=== PATIENT | female | born 1985 | race Caucasian/White ===

== ENCOUNTER 2018-05-10 08:58 | Emergency (ER) | payer MEDICAID ==
[2018-05-10 09:20] VITALS: BP 110/69; PULSE 86; RESP 18; TEMP 98; O2SAT 98
--- NOTE | 2018-05-10 09:28 | C.PDOC ---
History Of Present Illness 33 year old female presents to ED for evaluation of cough associated with clear sputum for the past 2 weeks. Otherwise, denies shortness of breath, chest pain, fever, chills, or any other associated symptoms at this time. Time Seen by Provider: 05/10/18 09:12 Chief Complaint (Nursing): Flu-like Symptoms History Per: Patient History/Exam Limitations: no limitations Onset/Duration Of Symptoms: Days Current Symptoms Are (Timing): Still Present Location Of Pain: None Sick Contacts (Context): Family Member(s) Associated Symptoms: Cough, Sputum. denies: Fever, Chills, Sore Throat, Neck Pain, Myalgias, Nasal Congestion Ear Symptoms: Bilateral: None Recent travel outside of the [place]: No Additional History Per: Patient Past Medical History Reviewed: Historical Data, Nursing Documentation, Vital Signs Vital Signs: Last Vital Signs Temp 98 F 05/10/18 09:12 Pulse 86 05/10/18 09:12 Resp 18 05/10/18 09:12 BP 110/69 05/10/18 09:12 Pulse Ox 98 05/10/18 09:12 - Medical History PMH: Migraine, Rheumatoid Arthritis Family History: States: Unknown Family Hx - Social History Hx Tobacco Use: No Hx Alcohol Use: No Hx Substance Use: No - Immunization History Hx Tetanus Toxoid Vaccination: No Hx Influenza Vaccination: No Hx Pneumococcal Vaccination: No Review Of Systems Except As Marked, All Systems Reviewed And Found Negative. Constitutional: Negative for: Fever, Chills ENT: Negative for: Ear Pain, Nose Discharge, Nose Congestion, Throat Pain Cardiovascular: Negative for: Chest Pain, Palpitations Respiratory: Positive for: Cough, Sputum. Negative for: Shortness of Breath, Hemoptysis, SOB with Excertion Gastrointestinal: Negative for: Nausea, Vomiting, Abdominal Pain, Diarrhea Neurological: Negative for: Headache, Dizziness Physical Exam - Physical Exam Appears: Non-toxic, No Acute Distress Skin: Normal Color, Warm, Dry Head: Atraumatic, Normacephalic Eye(s): bilateral: Normal Inspection Ear(s): Bilateral: Normal Nose: Normal Oral Mucosa: Moist Tongue: Normal Appearing Lips: Normal Appearing Throat: Normal, No Erythema, No Exudate, No Drooling Neck: Normal ROM, Supple Chest: Symmetrical Cardiovascular: Rhythm Regular, No Murmur Respiratory: No Accessory Muscle Use, No Rales, Rhonchi, No Wheezing Gastrointestinal/Abdominal: Soft, No Tenderness Extremity: Normal ROM, No Pedal Edema Neurological/Psych: Oriented x3, Normal Speech ED Course And Treatment O2 Sat by Pulse Oximetry: 98 (RA) Pulse Ox Interpretation: Normal Medical Decision Making Medical Decision Making: Patient is being discharged home with Rx and instructions to follow up with PMD in 2-5 days for further evaluation. Disposition Counseled Patient/Family Regarding: Need For Followup, Rx Given - Disposition Referrals: José Miguel Coles, ADALBERTO, [employer] INSTRUCTOR [Advanced Practice Nurse] - Disposition: HOME/ ROUTINE Disposition Time: 09:26 Condition: STABLE Additional Instructions: Follow up with your primary medical doctor or clinic in 2-5 days for further evaluation. Take medications as prescribed. Return to the emergency department at any time if symptoms persist or worsen. Prescriptions: Azithromycin [Zithromax] 250 mg PO DAILY #6 tab Benzonatate [Tessalon Perles] 100 mg PO TID #30 sgl predniSONE [predniSONE Tab] 40 mg PO DAILY #10 tab Instructions: Acute Bronchitis, Adult (DC) Forms: [employer] (Namibian) - POA Present On Arrival: None - Clinical Impression Clinical Impression: Bronchitis - PA / MANAGER OF PROGRAM / Resident Statement MD/DO has reviewed & agrees with the documentation as recorded. - Scribe Statement The provider has reviewed the documentation as recorded by the Scribe Chani Cordova All medical record entries made by the Abdoulaye were at my direction and personally dictated by me. I have reviewed the chart and agree that the record accurately reflects my personal performance of the history, physical exam, medical decision making, and the department course for this patient. I have also personally directed, reviewed, and agree with the discharge instructions and disposition.
== END 2018-05-10 09:38 | disposition home or self-care (01) ==
LOC: C.ER 08:58
DX: J40 Bronchitis, not specified as acute or chronic (principal)